=== PATIENT | female | born 1965 | race American Indian/Alaskan Native ===

== ENCOUNTER 2018-03-19 10:47 | Emergency (ER) | payer SELFPAY ==
[2018-03-19 10:52] VITALS: BP 139/79; PULSE 67; RESP 16; TEMP 98; O2SAT 98
--- NOTE | 2018-03-19 11:25 | C.PDOC ---
History Of Present Illness 52 year old female presents to the ER via EMS complaining of back pain and right ankle pain status post fall just prior to arrival. [place] causing her to fall on the stairs. Patient denies any LOC, weakness, numbness, tingling, urinary or bowel incontinence, head injury, visual changes, abdominal pain, or chest pain. Time Seen by Provider: 03/19/18 10:51 Chief Complaint (Nursing): Lower Extremity Problem/Injury History Per: Patient History/Exam Limitations: no limitations Onset/Duration Of Symptoms: Hrs Current Symptoms Are (Timing): Still Present Additional History Per: Patient, EMS - Ankle/Foot Description Of Injury: Fell Alleviating Factor(s): Ice Therapy Past Medical History Reviewed: Historical Data, Nursing Documentation, Vital Signs Vital Signs: Last Vital Signs Temp 98 F 03/19/18 10:49 Pulse 67 03/19/18 10:49 Resp 16 03/19/18 10:49 BP 139/79 03/19/18 10:49 Pulse Ox 98 03/19/18 15:19 - Medical History PMH: No Chronic Diseases Surgical History: No Surg Hx Family History: States: No Known Family Hx - Social History Hx Alcohol Use: No Hx Substance Use: No - Immunization History Hx Tetanus Toxoid Vaccination: No Hx Influenza Vaccination: No Hx Pneumococcal Vaccination: No Review Of Systems Except As Marked, All Systems Reviewed And Found Negative. Musculoskeletal: Positive for: Back Pain, Other (Ankle pain ) Neurological: Negative for: Weakness, Numbness Physical Exam - Physical Exam Appears: Non-toxic, No Acute Distress (pt talking on the phone) Skin: Normal Color, Warm, Dry Head: Normacephalic, Tenderness (mild facial tenderness to the left cheek) Eye(s): bilateral: Normal Inspection, PERRL, EOMI Ear(s): Bilateral: Normal Nose: Normal Oral Mucosa: Moist Throat: Normal, No Erythema, No Exudate Neck: Normal ROM, Supple Chest: Symmetrical Cardiovascular: Rhythm Regular Respiratory: Normal Breath Sounds, No Accessory Muscle Use, Other (Speaking in full sentences ) Gastrointestinal/Abdominal: Soft, No Tenderness Back: No CVA Tenderness, No Vertebral Tenderness, Paraspinal Tenderness Extremity: No Normal ROM (decreased ROM secondary to pain), Tenderness (Lateral right malleolus ), No Calf Tenderness, Capillary Refill (<2 sec), Swelling ( Lateral right malleolus ) Pulses: Left Dorsalis Pedis: Normal, Right Dorsalis Pedis: Normal Neurological/Psych: Oriented x3, Normal Speech, Normal Motor, Normal Sensation, No Other (focal deficits ) Gait: Other (Patient able to ambulate) ED Course And Treatment O2 Sat by Pulse Oximetry: 98 (RA) Pulse Ox Interpretation: Normal - Other Rad Right ankle XR X-Ray: Viewed By Me, Read By Radiologist Interpretation: Accession No. : [id number]. Patient Name / ID : ROSEY Cabrera [id number]. Exam Date : 03/19/2018 11:10:31 ( Approved ). Study Comment : Sex / Age : F / 52Y. Creator : Simon Crews MD. Dictator : Simon Crews MD. Category Manager : Cylinder Sander Operator : Simon Crews MD. Approver2 : Report Date : 03/19/2018 12:16:25. My Comment : . Right ankle three views. History: Trauma. Comparison: None available. Findings: Prominent lateral malleolar soft tissue swelling. No evidence of acute displaced fracture or dislocation. Prominent dorsal calcaneal spurring. Ankle mortise maintained. Talar dome intact. Impression: Prominent lateral malleolar soft tissue swelling. No evidence of acute displaced fracture or dislocation. Prominent dorsal calcaneal spurring. If pain persists, consider correlation with MRI. XR LS spine X-Ray: Viewed By Me, Read By Radiologist Interpretation: Accession No. : [id number]. Patient Name / ID : ROSEY MOHAN / [id number]. Exam Date : 03/19/2018 11:10:45 ( Approved ). Study Comment : Sex / Age : F / 52Y. Creator : Simon Crews MD. Dictator : Simon Crews MD. Category Manager : Cylinder Sander Operator : Simon Crews MD. Approver2 : Report Date : 03/19/2018 12:33:55. My Comment : . Lumbar spine three views. History: Back pain. Trauma. Comparison: None available. Findings: Suggestion of mild retrolisthesis of L5 on S1. Clinical correlation. Few superior endplate concavities at the L5 and T11 vertebral body levels. Lower level facet hypertrophy changes. Moderate fecal retention in the colon. Radiopaque density projects over the lower pelvis, uncertain clinical etiology. Clinical correlation. Impression: Suggestion of mild retrolisthesis of L5 on S1. Clinical correlation. Few superior endplate concavities at the L5 and T11 vertebral body levels. Lower level facet hypertrophy changes. If pain persists, consider MRI. Progress Note: Patient assessed and examined. Pt offered imaging for the face, pt declined. Patient given Tylenol 650mg PO and Flexeril 10mg PO. XR of left ankle and XR of LS spine ordered and reviewed. On reassessment, patient is resting comfortably, and is in no acute distress. Air cast and crutches applied by communications technologist. Tolerating PO. Patient was instructed to follow up with physician/ clinic in 1-2 days for further evaluation. Disposition - Disposition Disposition: HOME/ ROUTINE Disposition Time: 11:34 Condition: STABLE Additional Instructions: Rest, ice and elevate the area. Follow up with your doctor/bone doctor in 1-2 days. Return to ER if symptoms persist or worsen. Prescriptions: Naproxen [Naprosyn] 1 tab PO BID PRN #20 tab PRN Reason: Pain Instructions: Ankle Sprain (DC) Forms: [facility] (Niuean), Work Excuse - Clinical Impression Clinical Impression: Ankle sprain, Lumbar contusion, Contusion of cheek - PA / PSYCHOMETRICIAN / Resident Statement MD/DO has reviewed & agrees with the documentation as recorded. - Scribe Statement The provider has reviewed the documentation as recorded by the Dru Wild All medical record entries made by the Scribe were at my direction and personally dictated by me. I have reviewed the chart and agree that the record accurately reflects my personal performance of the history, physical exam, medical decision making, and the department course for this patient. I have also personally directed, reviewed, and agree with the discharge instructions and disposition.
--- NOTE | 2018-03-19 12:17 | RAD ---
Right ankle three views History: Trauma. Comparison: None available. Findings: Prominent lateral malleolar soft tissue swelling. No evidence of acute displaced fracture or dislocation. Prominent dorsal calcaneal spurring. Ankle mortise maintained. Talar dome intact. Impression: Prominent lateral malleolar soft tissue swelling. No evidence of acute displaced fracture or dislocation. Prominent dorsal calcaneal spurring. If pain persists, consider correlation with MRI.
--- NOTE | 2018-03-19 12:35 | RAD ---
Lumbar spine three views History: Back pain. Trauma. Comparison: None available. Findings: Suggestion of mild retrolisthesis of L5 on S1. Clinical correlation. Few superior endplate concavities at the L5 and T11 vertebral body levels. Lower level facet hypertrophy changes. Moderate fecal retention in the colon. Radiopaque density projects over the lower pelvis, uncertain clinical etiology. Clinical correlation. Impression: Suggestion of mild retrolisthesis of L5 on S1. Clinical correlation. Few superior endplate concavities at the L5 and T11 vertebral body levels. Lower level facet hypertrophy changes. If pain persists, consider MRI.
== END 2018-03-19 12:37 | disposition home or self-care (01) ==
LOC: C.ER 10:47
DX: S30.0XXA Contusion of lower back and pelvis, initial encounter (principal); S00.83XA Contusion of other part of head, initial encounter; S93.401A Sprain of unspecified ligament of right ankle, initial encounter; W10.9XXA Fall (on) (from) unspecified stairs and steps, initial encounter; Y92.522 Railway station as the place of occurrence of the external cause